=== PATIENT | female | born 1990 | race Caucasian/White ===

== ENCOUNTER 2020-06-11 12:04 | Outpatient (CLI) | payer OTHER, SELFPAY ==
[2020-06-11 12:49] LABS: Hematocrit 35.6 % (37.0-47.0); Hemoglobin 11.2 g/dL (12.0-15.0); Mean Corpuscular HGB Conc 31.5 g/dl (32-36); Mean Corpuscular Hemoglobin 27.7 pg (26-34); Mean Corpuscular Volume 88.1 fl (80-100); Mean Platelet Volume 10.3 fl (7.4-10.4); Platelet Count Result 195 k/mm3 (150-375); Red Blood Count 4.04 M/mm3 (4.2-5.4); White Blood Count 8.1 K/mm3 (4.5-10.0)
[2020-06-12 07:09] LABS: Rapid Plasma Reagin Non-Reactive (NonReactive)
== END 2020-06-11 12:05 | disposition home or self-care (01) ==
LOC: ANHLAB 12:06
PROVIDERS: Visit Provider Student in an Organized Health Care Education/Training Program
DX: Z98.891 History of uterine scar from previous surgery (principal)
CPT/HCPCS: 36415; 85027; 86592; 86900; 86901

== ENCOUNTER 2020-06-12 11:33 | Inpatient (IN) | payer OTHER, SELFPAY ==
[2020-06-12] VITALS (40 sets, daily range): BP systolic 108–155; BP diastolic 63–114; PULSE 61–102; RESP 15–20; TEMP 36.3–36.5; O2SAT 97–100; BMI 34.5
[2020-06-12] MEDS: LACTATED RINGERS 1,000 ML 125 ML IV CONT ×2 (12:34→13:19)
--- NOTE | 2020-06-12 12:39 | PM.IMHP ---
H&P: HPI History of Present Illness Date/Time: 06/12/20 12:39 Pt is a . LMP unknown. SOLANGE 06/19/20. She is s/p embryo transfer procedure on 10/02/19 with S[facility]. She is currently 39 weeks gestation. Patient presents to L&D for a scheduled repeat section. She declines TOLAC. has been uncomplicated. Patient doing well. Denies any vaginal bleeding, leakage of fluid, or contractions. Reports good movement. Chief Complaint: Repeat section Review of Systems Review of Systems: All systems reviewed & are unremarkable except as noted in HPI and below Constitutional: Constitutional: Reports as per HPI, Reports no additional constitutional complaints, Denies chills, Denies fever(s), Denies headache(s) and Denies night sweats Eyes: Eyes: Reports as per HPI and Reports no additional eye complaints ENT: Reports system reviewed and no additional complaints, except as documented, Reports as per HPI, Reports Normal hearing present and Denies headache(s) Cardiovascular: Cardiovascular: Reports as per HPI, Reports no additional cardiovascular complaints, Denies chest pain and Denies dyspnea Respiratory: Respiratory: Reports as per HPI, Reports no additional respiratory complaints, Denies cough and Denies dyspnea Gastrointestinal: Gastrointestinal: Reports as per HPI, Reports no additional gastrointestinal complaints, Denies abdominal pain, Denies change in bowel habits, Denies change in stool character, Denies nausea and Denies vomiting Genitourinary: Genitourinary: Reports no additional female genitourinary complaints, Reports as per HPI, Denies abnormal vaginal bleeding, Denies genital lesions, Denies hot flashes, Denies dyspareunia, Denies pelvic pain, Denies sexual dysfunction, Denies urinary incontinence, Denies vaginal discharge, Denies vaginal dryness and Denies vaginal odor Musculoskeletal: Musculoskeletal: Reports no additional musculoskeletal complaints and Reports as per HPI Integumentary/Breasts: Skin/Breast: Reports system reviewed and no additional complaints, except as docu, Reports as per HPI, Denies breast pain and Denies nipple discharge Neurologic: Reports system reviewed and no additional complaints, except as documented, Reports as per HPI, Reports Normal hearing present and Denies headache(s) Psychiatric: Psychiatric: Reports no additional psychiatric complaints, Reports as per HPI, Denies anxiety and Denies depression Endocrine: Endocrine: Reports no additional endocrine complaints and Reports as per HPI Hematologic/Lymphatic: Hematologic/Lymphatic: Reports no additional hematologic/lymphatic complaints and Reports as per HPI Allergic/Immunologic: Allergic/Immunologic: Reports no additional allergic/immunologic complaints and Reports as per HPI PMFSH Past Medical History Medical History (Updated 06/12/20 @ 12:48 by oLvely Torre MD) History of gestational hypertension Hypothyroidism Surgical History Surgical History Previous section Family History Family History Other No pertinent family history Social History Social History Smoking status: Never smoker Second hand tobacco smoke exposure: No Alcohol intake: never Substance use: never Gender identity (if verbalized by the patient): Female Spiritual care concerns: No Meds Home Medications and Allergies Home Medications Medication Instructions Recorded Confirmed Type ascorbic acid (vitamin C) 100 mg PO DAILY 12/04/19 06/12/20 History cholecalciferol (vitamin D3) 50 50 mcg PO DAILY 12/04/19 06/12/20 History mcg (2,000 unit) capsule vitamins with calcium 1 tablet PO DAILY #90 tablet 12/04/19 06/12/20 Rx no.72-iron 29 mg-folic acid 1 mg tablet levothyroxine 50 mcg capsule 50 mcg PO DAILY #90 cap 01/01/20 06/12/20 Rx calcium ca
--- NOTE | 2020-06-12 12:42 | LDADM ---
This patient, Chloe Haskins, was admitted to Labor/Delivery/Recovery 120 on 06/12/20 at 11:33. Plans for labor, pain management and were discussed with patient. Patient/family oriented to hospital policies and general routines including ID bracelet, bed and alarms, visiting hours, pain management, procedures, bathroom and other care routines, personal items, smoking policy, room service/diet and guest tray routines, security routines, call light, and visiting hours. Patient/Family are encouraged to report perceived risks to care and to ask questions if they do not understand what they are told or what they should do. See OBIX for further documentation.
--- NOTE | 2020-06-12 12:50 | WPDANESEPPF ---
Anes - Initial Pre Proc Eval Procedure: Operation Date: 06/12/20 13:30 Proposed Procedures p Repeat Section - Lovely Torre MD Date/Time: 06/12/20 12:50 Surgeon: Lovely Torre MD Pre Op Diagnosis: C/S Patient Data Age: 29 Gender: F Height: 5 ft 3 in Weight: 88.5 kg Last Vital Signs Pulse 93 06/12/20 12:08 BP 119/86 06/12/20 12:08 Pulse Ox 99 06/12/20 12:28 Allergies Allergy/AdvReac Type Severity Reaction Status Date / Time No Known Allergies Allergy Verified 06/12/20 12:03 Home Medications Medication Instructions Recorded Confirmed Type ascorbic acid (vitamin C) 100 mg PO DAILY 12/04/19 06/12/20 History cholecalciferol (vitamin D3) 50 50 mcg PO DAILY 12/04/19 06/12/20 History mcg (2,000 unit) capsule vitamins with calcium 1 tablet PO DAILY #90 tablet 12/04/19 06/12/20 Rx no.72-iron 29 mg-folic acid 1 mg tablet levothyroxine 50 mcg capsule 50 mcg PO DAILY #90 cap 01/01/20 06/12/20 Rx calcium carbonate 200 mg calcium 200 mg PO QID 04/29/20 06/12/20 History (500 mg) chewable tablet Patient hx anesthesia problems: none Family hx anesthesia problems: none PMFSH Past Medical History Medical History (Updated 06/12/20 @ 12:48 by Lovely Torre MD) History of gestational hypertension Hypothyroidism Surgical History Surgical History Previous section Family History Family History Other No pertinent family history Social History Social History Smoking status: Never smoker Second hand tobacco smoke exposure: No Alcohol intake: never Substance use: never Gender identity (if verbalized by the patient): Female Spiritual care concerns: No Anes - Eval Final PreProcedure Day of Procedure 06/12/20 12:50 Patient weight: obese Heart: regular rate and rhythm Lungs: clear to auscultation Airway: Mallampati scale class II Neurological: alert and oriented Last oral intake: >/= 8 hours ASA classification: II Emergent: no Anesthetic plan: proceed Anesthesia type and monitoring: regional spinal and standard monitoring Informed Consent: The patient's anesthetic plan and its attendant risks and benefits were discussed with the patient/family/POA. Questions were solicited and answers provided to the satisfaction of the patient/family/POA.
--- NOTE | 2020-06-12 12:59 | WPDHPUPDATE1 ---
History and Physical Update Update Date/Time: 06/12/20 12:59 History and Physical has been reviewed, including an updated exam of the patient. There are NO changes in the patient's condition. Risks, benefits, and alternatives have been discussed and questions answered. Patient agrees to proceed with procedure.
[2020-06-12] MEDS: ceFAZolin 2 GM/D5W 50 ML 2 GM/50 ML BAG IVPB (13:23)
--- NOTE | 2020-06-12 15:07 | PM.PROC ---
Procedure Note - Detailed Date of procedure: 06/12/20 Pre-op diagnosis: C/S Intrauterine at 39 weeks gestation Previous section x 1 Declines TOLAC Post-op diagnosis: same Procedure performed: Repeat low transverse section via Pfannenstiel Description of procedure: The patient was taken to the operating room, where she self-transferred to the operating room table. Spinal anesthesia was administered and found to be adequate. The patient was placed in dorsal supine position with a leftward tilt. She was prepped and draped in the usual sterile fashion. Spinal anesthesia was tested and found to be adequate. A Pfannenstiel skin incision was made with a scalpel and carried through to underlying layer of fascia with the Bovie. The fascia was incised in the midline and the incision was extended laterally with the use of forceps and England scissors. The inferior aspect of the fascial incision was grasped with Rogelio clamps, elevated, and the underlying rectus muscle were dissected off with England scissors. Attention was then turned to the superior aspect of the fascial incision, which in a similar manner, was grasped with Rogelio clamps, elevated, and the underlying rectus muscles were also dissected off with England scissors. The rectus muscles were grasped with Allis clamps and . The peritoneal cavity was entered sharply with a scalpel. This incision was extended superiorly and inferiorly with good visualization of the bladder and care was taken to avoid blood vessels. A bladder blade was inserted. The vesicouterine peritoneum was identified and incised sharply with Metzenbaum scissors. This incision was extended laterally with Metzenbaum scissors and a bladder flap was created digitally. The bladder blade was replaced. A low-transverse uterine incision was made with a scalpel. This incision was extended laterally with bandage scissors. Amniotomy was performed. Meconium stained amniotic fluid was noted. The infant's head was grasped and gently guided to the level of the uterine incision. Additional space was needed to facilitate delivery and the rectus muscles along the left side were transected approx. 1-1.5 cm with England scissors. The 's head was delivered atraumatically without difficulty followed by the neck, shoulders, and rest of body with gentle fundal pressure. The 's nose and mouth were suctioned bulb suction. The infant was crying spontaneously. The cord was clamped and cut and the infant was handed off to waiting nursing staff. A segment of cord was collected for cord gases. Cord blood was also collected. The placenta was then delivered manually with gentle uterine massage. Uterus was exteriorized and cleared of all clots and debris. The uterine incision was reapproximated with 0 Vicryl in a running, locked fashion. A second imbricating layer using 0 Monocryl performed. Excellent hemostasis was noted. On inspection, the uterus, ovaries, and fallopian tubes appeared to be normal bilaterally. The uterus was replaced into the abdominal cavity. The gutters were cleared of all clots and debris. The uterine incision was inspected again. Pinpoint areas of oozing beneath incision were noted and made hemostatic with bovie. An area of bleeding on the surface of the lower uterine segment was also bleeding. This area was made hemostatic with two figure of eight sutures using 0 Vicryl. Excellent hemostasis was noted. Hemaderm was applied across the uterine incision. Interceed was also applied across the uterine incision and anterior surface of the uterus. The peritoneum was reapproximated with 2-0 Monocryl. The fascia was then closed with 0 Vicryl in a running fashion. The subcutaneous layer was irrigated with water. Pinpoint areas of bleeding were made hemostatic with Bovie. The subcutaneous layer was reapproximated with 2-0 plain and the skin was then closed with 4-0 Monocryl in a subcuticular fashion. The skin was cleansed and dried. Dermaflex skin adhe
--- NOTE | 2020-06-12 15:18 | P.PCNOB_ITS ---
OB - Delivery Note Procedure Delivery date: 06/12/20 Procedure: Procedures Operation Date: 06/12/20 13:30 <No data on this case meets the specified criteria> events: Previous Intrapartal events: None Route of delivery: Quantitative Blood Loss (ml): 360 Anesthesia type: Spinal Disposition: floor Complications: No immediate complications [place] Baby Date of : 06/12/20 Time of : 13:59 Weeks of gestation at delivery: 39 Infant gender: Female Weight (pounds): 8 Weight (ounces): 13 presentation: vertex Placenta delivery description: Manual Removal cord vessel description: 3 Vessels score one minute: 8 score five minutes: 9
[2020-06-12] MEDS: diphenhydrAMINE HCl INJ 50 MG/ML VIAL 25 MG IV PUSH (15:56)
[2020-06-12] MEDS: OXYTOCIN 30 UNITS/NS 500 ML 30 UNITS/500 ML BAG 125 UNITS IV CONT (16:00)
[2020-06-12] MEDS: ONDANSETRON INJ 4 MG/2 ML VIAL IV PUSH (22:47)
[2020-06-13] MEDS: HYDROcodone/acetaminophen (*CRX) 5-325 MG TABLET 1 TAB PO ×5 (03:59→23:54)
[2020-06-13] MEDS: IBUPROFEN 600 MG TABLET PO ×4 (03:59→23:55)
[2020-06-13 04:00] VITALS: BP 121/84; PULSE 75; RESP 16; TEMP 36.6; O2SAT 100
[2020-06-13 04:44] LABS: Basophils Percent Auto 0.2 % (0.2-1.2); Eosinophils Absolute Auto 0.1 K/mm3 (0-0.3); Eosinophils Percent Auto 0.7 % (0-4.4); Hematocrit 31.5 % (37.0-47.0); Hemoglobin 10.1 g/dL (12.0-15.0); Immature Granulocyte Absolute 0.04 K/mm3 (0.00-0.031); Immature Granulocyte Percent A 0.3 % (0-0.5); Lymphocytes Absolute Auto 1.66 K/mm3 (0.9-3.2); Lymphocytes Percent Auto 13.7 % (18.3-44.2); Mean Corpuscular HGB Conc 32.1 g/dl (32-36); Mean Corpuscular Hemoglobin 28.1 pg (26-34); Mean Corpuscular Volume 87.7 fl (80-100); Mean Platelet Volume 10.8 fl (7.4-10.4); Monocytes Absolute Auto 0.6 K/mm3 (0.1-0.6); Monocytes Percent Auto 5.3 % (2.6-8.5); Neutrophils Absolute Auto 9.7 K/mm3 (1.3-6.7); Neutrophils Percent Auto 79.8 % (45.5-73.1); Platelet Count Result 183 k/mm3 (150-375); Red Blood Count 3.59 M/mm3 (4.2-5.4); Red Cell Distribution Width 12.8 % (11.5-14.5); White Blood Count 12.1 K/mm3 (4.5-10.0)
--- NOTE | 2020-06-13 07:42 | WPDANLDPN2 ---
Anes-Prog Note L&D Date/Time: 06/13/20 07:42 Comfortable throughout: section Neuraxial method: spinal Epidural/Spinal procedure site: clean & non-tender Neuro status: Neuro function grossly intact. Cardiovascular status: normal Respiratory status: normal Airway patency: baseline Mental status: baseline Post-Op hydration status: normal Vital Signs: Last Vital Signs Temp 36.6 C 06/13/20 04:00 Pulse 75 06/13/20 04:00 Resp 16 06/13/20 04:00 BP 121/84 06/13/20 04:00 Pulse Ox 100 06/13/20 04:00 Pain score (VAS): 0 I/O: Intake & Output 06/12/20 06/12/20 06/13/20 15:59 23:59 07:59 Intake Total 1050 Output Total 548 708 7041 Balance [phone] Post-procedural complaints: none Patient feedback: Patient satisfied with anesthetic care.
--- NOTE | 2020-06-13 07:42 | WPDANLDNPN2 ---
Anes-Prog Note L&D-Neuraxial Date/Time: 06/13/20 07:42 Neuraxial medications: intrathecal PF morphine Opiod-related complaints: none Patient feedback: Patient satisfied with post-operative pain management.
--- NOTE | 2020-06-13 08:19 | PM.OBPNVD ---
OB - PN: Subj Subjective Date/time seen: 06/13/20 08:19 Patient doing well this morning. Pain well controlled with medication. Denies any headache, chest pain, shortness of breath, nausea, or vomiting. Tolerating regular PO diet. Ambulating without difficulty. Jacinto catheter removed this morning. Patient has voided. No flatus yet. OB - PN: Obj Data Labs CBC & Chem 7: 06/13/20 03:55 Labs: Laboratory Results - last 24 hr 06/13/20 03:55 WBC 12.1 H RBC 3.59 L Hgb 10.1 L Hct 31.5 L MCV 87.7 MCH 28.1 MCHC 32.1 RDW 12.8 Plt Count 183 MPV 10.8 H Immature Gran % (Auto) 0.3 Neut % (Auto) 79.8 H Lymph % (Auto) 13.7 L [place] % (Auto) 5.3 Eos % (Auto) 0.7 Baso % (Auto) 0.2 Lymph # (Auto) 1.66 [place] # (Auto) 0.6 Eos # (Auto) 0.1 Baso # (Auto) 0.0 Abs Immat Gran (auto) 0.04 H Absolute Neuts (auto) 9.7 H Absolute Nucleated RBC 0.0 Nucleated RBC % 0.0 OB - PN A/P Assessment and Plan (1) Delivery by section: Status: Acute Assessment and Plan: POD#1 doing well continue routine postoperative care encourage ambulation and use of IS pain management PRN Time Spent With Patient Time: Total time spent is greater than 50% in coordination of care (as documented) at patient's floor/unit and/or counseling patient: Exam Const: General: cooperative, healthy appearing, comfortable and no acute distress GI: Inspection: non-distended GI Palp: Yes Soft to palpation and No Tenderness to palpation present (GI) Other: fundus firm below umbilicus, inc covered with bandage, bandage c/d/i Extrem: Right lower extremity: edema (trace) Left lower extremity: edema (trace) Other: no calf tenderness
[2020-06-13 08:35] VITALS: BP 108/72; PULSE 82; RESP 18; TEMP 37.2; O2SAT 99
[2020-06-13] MEDS: SIMETHICONE 80 MG TAB.CHEW PO ×3 (09:20→23:54)
[2020-06-13] MEDS: DOCUSATE SODIUM 100 MG CAPSULE PO ×2 (09:20→16:57)
[2020-06-13] MEDS: MULTIVIT/MIN/PREN/FOL AC/IRON TABLET 1 TAB PO (09:21)
[2020-06-13 12:20] VITALS: PULSE 82; RESP 18; O2SAT 99
--- NOTE | 2020-06-13 12:30 | PC.NURSE ---
Consult with pt., mother reports is sleepy and does not wake for feedings. Mother is pumping and using the latch assist and nipple shield. Mother reports does not nurse with shield and latch assist will draw nipple out and will quickly flatten before infant can latch. Mother pumped and bottle fed with first child due to latch issues. Requested mother call out next feeding for assist.
[2020-06-13 13:10] VITALS: BP 121/88; PULSE 80; RESP 18; TEMP 36.7; O2SAT 98
--- NOTE | 2020-06-13 13:20 | PC.NURSE ---
Attempt to assist with feeding, mother states was acting fussy so she just bottle feed.
--- NOTE | 2020-06-13 15:30 | PC.NURSE ---
Mother called out for assist with feeding. Demonstrated stimulation techniques to wake for feeding. Assisted with infant to breast. Reviewed positioning/alignment in football, holding breast in C hold and guided asymmetrical latch on. Several attempts before infant was able to latch correctly. is sleepy and does not open wide and tends to suck on her own tongue not allowing deep latch. Once on nursed with eagerly, with steady draws and frequent occasional swallowing for bursts and would have long pausing. Constant stimulation needed to keep infant nursing. Reviewed signs of a correct latch, effective nursing and suck swallow ratio. Infant was able to maintain latch. Mother reported tenderness at times, as infant had slipped to shallow latch. Demonstrated how to adjust latch more deeply while feeding. Mother quickly reports she can feel is latched more deeply and has minimal tenderness. Suggested to stimulate infant while feeding to keep infant awake and nursing effectively for increased stimulation and increased intake. Instructed mother to call out for RN assistance if she is unable to latch infant for feeding or she has discomfort with nursing. Mother reports she is pleased this is 's first feeding at the breast. Suggested mother continue to supplement smaller amounts after if infant continues to act fussy or continue to root. Reviewed mother should continue to pump until is more effective and eagerly feeding.
[2020-06-13 17:00] VITALS: BP 112/76; PULSE 79; RESP 18; TEMP 36.7; O2SAT 98
[2020-06-13 20:00] VITALS: BP 115/79; PULSE 72; RESP 18; TEMP 36.9; O2SAT 100
[2020-06-14] MEDS: SIMETHICONE 80 MG TAB.CHEW PO ×2 (05:07→09:54)
[2020-06-14] MEDS: HYDROcodone/acetaminophen (*CRX) 5-325 MG TABLET 1 TAB PO ×2 (05:07→09:53)
[2020-06-14 07:15] VITALS: BP 115/82; PULSE 68; RESP 18; TEMP 36.9
[2020-06-14] MEDS: LEVOTHYROXINE SODIUM 50 MCG TABLET PO (07:16)
[2020-06-14] MEDS: MULTIVIT/MIN/PREN/FOL AC/IRON TABLET 1 TAB PO (07:16)
[2020-06-14] MEDS: IBUPROFEN 600 MG TABLET PO (07:16)
[2020-06-14] MEDS: DOCUSATE SODIUM 100 MG CAPSULE PO (07:16)
--- NOTE | 2020-06-14 10:59 | PM.OBPNVD ---
OB - PN: Subj Subjective Date/time seen: 06/14/20 10:59 Patient comments: no complaints, pain well controlled, tolerating diet, flatus present and other (Ambulating and voiding without problems. Lochia similar to menses) baby status: doing well OB - PN: Obj Data Labs CBC & Chem 7: 06/13/20 03:55 OB - PN A/P Plan day: 2 (s/p C section, doing well) Plan: routine care and discharge home (Follow up in 2 weeks) Time Spent With Patient Time: Total time spent is greater than 50% in coordination of care (as documented) at patient's floor/unit and/or counseling patient: Time with patient: less than 15 minutes Exam Const: General: no acute distress Resp: Auscultation: clear to auscultation bilaterally Cardio: Rate: regular rate Rhythm: regular rhythm GI: Inspection: non-distended, incision (Intact without erythema, drainage, or induration) and other (Fundus firm and nontender below umbilicus) GI Palp: Yes abdominal tenderness (appropriate) and Yes Soft to palpation Extrem: General: no edema
--- NOTE | 2020-06-14 11:00 | PM.OBDSVD ---
DS: Admitting Diagnosis Admitting Diagnosis Admitting Diagnosis: Prior c section OB - DS: Summary OB Procedures : None OB Procedures Intrapartum: OB Procedures: : None Peripartum Data Delivery Method: Section Procedures: Procedures Operation Date: 06/12/20 13:30 Actual Procedures Side Surgeon p Repeat Section Lovely Torre MD complications: none Status at Discharge Functional status at discharge: independent ambulation Overall status at discharge: patient is progressing back to baseline Time Spent with Patient Time attestation: Total time spent providing and/or coordinating discharge services: Time spent: Less than 30 minutes Discharge Plan Discharge Attending physician on discharge: Lovely Torre Discharging Clinician: Tori Jang Patient Disposition: Home, Self-Care Activity: may shower and pelvic rest Diet: as tolerated Wound Care Instructions: incision open to air Discharge Instructions: Education: Mom and Baby Guide Given to: Mother Follow-Up: Call your delivering provider's office for an appointment to be seen in: 6 Weeks Mom and baby should come to the [facility] for the follow-up appointment. Appointment Date/Time: June 16, 2020 at 10:00 am What to expect at your follow-up visit: Blood Pressure Check Physical Assessment Call [phone] if you are unable to keep your appointment time. BREAST CARE: * Wear a snug supportive bra. * For engorgement discomfort: Breast Feeding: * Apply warm moist washcloths * Express milk as needed to relieve engorgement * Wear loose clothing Bottle Feeding: * May apply ice packs * For sore nipples: * Identify correct latch-on * Apply warm moist washcloths before and after nursing * Air dry nipples after nursing * May apply Lansinoh cream to nipples ABDOMINAL INCISION: (if applicable) * Allow incision to air dry * Do NOT use lotions for powders on your incision * When showering, allow soap and water to run over the incision, but do not wash incision EPISIOTOMY/PERINEAL CARE: * Until bleeding stops, use your bren bottle after urinating * Change your pad frequently throughout the day * You may take sitz baths several times a day (fill your bathtub with warm water and soak for 20 minutes.) Do NOT bathe in the water * No tub baths until seen by your physician - You may shower ACTIVITY: * Rest as much as possible. * Do not exercise or lift anything heavier than your baby (such as laundry or other children.) * Avoid stairs or driving as much as possible. * Do not put anything into the vagina. No douching, tampons, or sexual activity until seen by physician. NOTIFY PHYSICIAN IF YOU HAVE ANY QUESTIONS OR IF ANY OF THE FOLLOWING SYMPTOMS OCCUR: * If your episiotomy or incision becomes red, swollen, or more painful than what you have experienced in the hospital. * If your vaginal bleeding becomes foul smelling. * If your vaginal bleeding becomes more heavy than a period or if your bleeding changes from pink to bright red. However, you may pass an occasional walnut-sized clot once or twice for the first week . * If you experience a sharp, shooting pain in you calves. * If you discover a hard, reddened area on your breast or if you experience flu-like symptoms. DIET: * Eat regular, well-balanced meals. * Drink plenty of fluids daily. If , drink to thirst. Stand Alone Forms: General Discharge Information Follow-up/Referrals: Lovely Torre MD [Physician] - 2 Weeks Discharge Medications: New hydrocodone-acetaminophen 5-325 mg Tablet 1 tablet PO Q4H PRN (Reason: Moderate Pain (4-6)) Qty: 30 RF: 0 ibuprofen 600 mg Tablet 600 mg PO Q6H PRN (Reason: Cramping) Qty: 60 RF: 0 Continued cholecalciferol (vitamin D3) 50 mc
[2020-06-14] MEDS: TETANUS,DIPHTHERIA,AC PERTUSSIS ADULT (0.5 ML) BOOSTRIX IM (11:42)
[2020-06-16 10:32] VITALS: BP 119/87; PULSE 67; RESP 18; TEMP 36.7
== END 2020-06-14 12:05 | disposition home or self-care (01) | DRG 788 ==
LOC: ANHOB2 06-14 11:08 → ANHLDR 06-16 17:14 → ANHOB2 06-16 17:14
PROVIDERS: Admitting Provider Student in an Organized Health Care Education/Training Program; Visit Provider Obstetrics & Gynecology
PROC: 10D00Z1 Extraction of Products of Conception, Low, Open Approach (ICD-10-PCS; CPT 59514; principal; 2020-06-12 13:30)
DX: O34.211 Maternal care for low transverse scar from previous cesarean delivery (principal); Z37.0 Single live birth; Z3A.39 39 weeks gestation of pregnancy; O99.284 Endocrine, nutritional and metabolic diseases complicating childbirth; E03.9 Hypothyroidism, unspecified; O99.214 Obesity complicating childbirth; E66.9 Obesity, unspecified; O77.0 Labor and delivery complicated by meconium in amniotic fluid
CPT/HCPCS: 36415; 85025; 85027; 86592; 86900; 86901; 90715; A9270; J0131; J0690; J1200; J2274; J2370; J2405; J2590; J7120

== ENCOUNTER → 2021-10-21 11:51 | Outpatient (CLI) | payer OTHER, SELFPAY ==
--- NOTE | ~2021-10-21 | US_ITS ---
EXAMINATION: US OB <=14 wk fetus w TV INDICATION: O26.851 - Spotting complicating , first trimester . LMP 08/03/2021. GA by LMP 11 weeks 2 days. SOLANGE by LMP 05/10/2022. TECHNIQUE: Sonography of the pelvis was performed by transabdominal and transvaginal techniques. COMPARISON: None. RESULT: Uterus: - Orientation: Anteverted - Size: 12.1 x 6.1 x 6.5 cm - Myometrium: Homogeneous echogenicity . Gestation: - Intrauterine gestational sac: Single present - Mean Sac Diameter: cm, corresponding gestational age week days - Yolk sac: 0.5 cm - Embryo: Single present - [place] rump length: 2.9 cm, corresponding gestational age 9 weeks, 5 days -Gestational heart rate: present 180 bpm -Subgestational hematoma: Absent Right ovary: - Size : 2.3 x 1.6 x 2.2 cm - Normal sonographic appearance with physiologic follicles. Left ovary: - Size: 3.5 x 2.3 x 2.8 cm - Normal sonographic appearance with physiologic follicles. Pelvis free fluid: None. IMPRESSION: Single, live intrauterine gestation. heart rate 180 bpm. Estimated Gestational Age: 9 weeks, 5 days by crown rump length. SOLANGE by ultrasound 05/22/2019. Reviewed, dictated and finalized at location [facility]. IMPRESSION: Single, live intrauterine gestation. heart rate 180 bpm. Estimated Gestational Age: 9 weeks, 5 days by crown rump length. SOLANGE by ultras ound 05/22/2019.
== END ==
PROVIDERS: PCP Student in an Organized Health Care Education/Training Program; Visit Provider Student in an Organized Health Care Education/Training Program
DX: O26.851 Spotting complicating pregnancy, first trimester (principal); Z3A.09 9 weeks gestation of pregnancy
CPT/HCPCS: 76801; 76817

== ENCOUNTER 2021-11-08 08:08 | Emergency (ER) | payer OTHER, SELFPAY ==
--- NOTE | ~2021-11-08 | US_ITS ---
EXAMINATION: US OB <=14 wk fetus w TV DATE: 11/08/2021 11:45 INDICATION: Vaginal bleeding. TECHNIQUE: Real-time transabdominal and transvaginal pelvic ultrasound was performed. COMPARISON: Ultrasound 10/21/2021 FINDINGS: TRANSABDOMINAL ULTRASOUND: The uterus measures 11.3 x 6.8 x 7.4 cm. TRANSVAGINAL ULTRASOUND: There is an intrauterine gestational sac. The crown rump length measur es 6.4 cm, which correlates with an estimated gestational age of 12 weeks and 6 day(s) (+/-) 1 week(s ) and 1 day(s). heart motion is identified measuring 144 beats per minute (bpm) by M-mode Doppl er. The cervical length is 3.4 cm. The right ovary measures 2.5 x 1.9 x 2.3 cm. The left ovary measur es 2.5 x 1.8 x 2.5 cm. There is no free fluid in the pelvis. IMPRESSION: 1. Single living intrauterine gestation with estimated date of delivery of 05/21/2022 based on the ult rasound from 10/21/2021. Reviewed, dictated and finalized at location A. IMPRESSION: 1. Single living intrauterine gestation with estimated date of delivery of 05/21 based on the ultrasound from 10/21/2021.
[2021-11-08 08:11] VITALS: BP 151/99; PULSE 99; RESP 14; TEMP 36.7; O2SAT 100
[2021-11-08 09:49] LABS: Basophils Percent Auto 0.3 % (0.2-1.2); Eosinophils Absolute Auto 0.1 K/mm3 (0-0.3); Eosinophils Percent Auto 1.2 % (0-4.4); Hematocrit 37.1 % (37.0-47.0); Hemoglobin 12.2 g/dL (12.0-15.0); Immature Granulocyte Absolute 0.03 K/mm3 (0.00-0.031); Immature Granulocyte Percent A 0.3 % (0-0.5); Lymphocytes Absolute Auto 1.59 K/mm3 (0.9-3.2); Mean Corpuscular HGB Conc 32.9 g/dl (32-36); Mean Corpuscular Volume 91.2 fl (80-100); Mean Platelet Volume 9.5 fl (7.4-10.4); Monocytes Absolute Auto 0.4 K/mm3 (0.1-0.6); Monocytes Percent Auto 3.7 % (2.6-8.5); Neutrophils Absolute Auto 7.3 K/mm3 (1.3-6.7); Neutrophils Percent Auto 77.5 % (45.5-73.1); Platelet Count Result 263 k/mm3 (150-375); Red Blood Count 4.07 M/mm3 (4.2-5.4); Red Cell Distribution Width 12.7 % (11.5-14.5); White Blood Count 9.4 K/mm3 (4.5-10.0)
--- NOTE | 2021-11-08 09:52 | ED.PREGNANCY ---
HPI - General Chief complaint: Vaginal Bleeding Stated complaint: 12 weeks , vaginal bleeding Time Seen by Provider: 11/08/21 09:01 Source: patient Mode of arrival: ambulatory Limitations: no limitations History of Present Illness HPI Narrative: Patient is a 31 y/o female who presents to the ED with c/o vaginal spotting. Patient is and currently approx 12 weeks , confirmed IUP via US @ [address] Torre. Patient reports she noticed bright red vaginal spotting when wiping this morning. Bleeding very minimal, but patient became concerned. She called [facility] office and was advised she could come to the ER if she was concerned. Patient denies any abdominal pain. Occasional nausea, but denies vomiting. Denies fever, dysuria, hematuria. Related Data Home Medications Medication Instructions Recorded Confirmed ascorbic acid (vitamin C) 100 mg PO DAILY 12/04/19 06/12/20 cholecalciferol (vitamin D3) 50 50 mcg PO DAILY 12/04/19 06/12/20 mcg (2,000 unit) capsule levothyroxine 50 mcg tablet 25 mcg PO .COMPLEX 08/11/21 Allergies Allergy/AdvReac Type Severity Reaction Status Date / Time No Known Allergies Allergy Verified 10/27/21 13:39 Review of Systems Review of Systems: CONSTITUTIONAL: Denies fever, chills, or sweats. GASTROINTESTINAL: Reports nausea. Denies abdominal pain, vomiting, or diarrhea. GENITOURINARY: Reports vaginal spotting. Denies dysuria or hematuria. All systems reviewed & are unremarkable except as noted in HPI and below PMFSH Past Medical History Medical History History of gestational hypertension History of in vitro fertilization x2 Hypothyroidism Surgical History Surgical History Delivery by section x2 History of bunionectomy Family History Family History Other No pertinent family history Social History Social History Smoking status: Never smoker Second hand tobacco smoke exposure: No Alcohol intake: never Substance use: never Gender identity (if verbalized by the patient): Female Spiritual care concerns: No Exam Narrative: GENERAL: Well appearing, well-nourished, non-toxic, in no acute distress. HEAD: Normocephalic, atraumatic. NECK: Supple. No adenopathy, no masses. RESPIRATORY: Airway patent, respirations nonlabored. Clear to auscultation bilaterally, no rales, rhonchi, wheezing. CARDIOVASCULAR: Regular rate and rhythm without murmurs, rubs, or gallops. Peripheral pulses 2+ and equal bilaterally. ABDOMINAL: Soft, minimal lower abdominal/suprapubic tenderness, nondistended, no hepatosplenomegaly. Normoactive BS. PELVIC: Normal external genitalia. Small amount of dark red vaginal bleeding in vaginal vault, able to be cleared with 1 long cotton swab. No pooling of blood or signs of hemorrhage. Cervix closed. No CMT. MUSCULOSKELETAL: Moves all extremities. Strength/ROM intact without gross deformities. SKIN: Warm, dry, normal color. No rashes. NEURO: A&O X3. Speech clear. Cranial nerves II-XII grossly intact. Steady gait. No ataxic movements. PSYCHIATRIC: Anxious. Appropriate affect. Normal interaction. Course Consultations Consultation #1: Discussed case findings with Dr. Torre [employer], advised patient can be discharged home and follow-up in office. Pelvic rest until cleared by OB. Date: 11/08/21 Time: 12:13 Vital Signs Vital signs: Vital Signs Temperature 98.0 F 11/08/21 08:11 Pulse Rate 99 11/08/21 08:11 Respiratory Rate 14 11/08/21 08:11 Blood Pressure 151/99 H 11/08/21 08:11 Pulse Oximetry 100 11/08/21 08:11 Oxygen Delivery Room Air 11/08/21 08:11 Temperature 98.0 F 11/08/21 08:11 Pulse Rate 76 11/08/21 12:23 Respiratory Rate 16 11/08/21 12:2
[2021-11-08 09:59] LABS: Alanine Aminotransferase 14 U/L (6-35); Alkaline Phosphatase 77 U/L (38-126); Anion Gap 9 mmol/L (8-16); Aspartate Amino Transferase 23 U/L (14-36); Bilirubin,Total 0.4 mg/dL (0.2-1.3); Blood Urea Nitrogen 16 mg/dL (7-17); Calcium 8.6 mg/dL (8.4-10.2); Carbon Dioxide 24 mmol/L (22-30); Chloride 104 mmol/L (98-107); Estimated Glomerular Filt Rate > 60; Glucose 94 mg/dL (65-110); Potassium 4.3 mmol/L (3.4-5.0); Sodium 137 mmol/L (137-145)
[2021-11-08 11:01] LABS: Appearance Urine Clear (Clear); Bilirubin Urine Negative (Negative); Blood Urine 1+ (Negative); Glucose Urine UA Negative (Negative); Ketones Urine Negative (Negative); Leukocyte Esterase Ur Negative LEU/UL (Negative); Nitrate Urine Negative (Negative); Protein Urine Negative (Negative); Urobilinogen Urine 0.2 mg/dL (<2.0)
[2021-11-08 11:07] LABS: Add Urine Microscopic? YES; Bacteria Urine Trace /hpf; Color Urine Light Yellow (Yellow); Mucus Urine Rare /lpf; Squamous Epithelial Cell Urine Occasional /hpf (Few); WBC Urine 0-3 /hpf
[2021-11-08 12:03] VITALS: BP 122/72; PULSE 88; RESP 16; O2SAT 100
[2021-11-08 12:23] VITALS: BP 115/76; PULSE 76; RESP 16; O2SAT 97
== END 2021-11-08 12:24 | disposition home or self-care (01) ==
PROVIDERS: Physician Assistant; Emergency Provider Emergency Medicine; PCP Student in an Organized Health Care Education/Training Program
DX: O20.0 Threatened abortion (principal); Z3A.12 12 weeks gestation of pregnancy
CPT/HCPCS: 36415; 76801; 76817; 80053; 81001; 84702; 85025; 99284

== ENCOUNTER 2022-02-22 06:56 | Outpatient (CLI) | payer OTHER, SELFPAY ==
[2022-02-22 07:36] LABS: Glucose Fasting Gestational 90 mg/dL (>/=95)
[2022-02-22 09:10] LABS: Glucose 1 Hour Gest 139 mg/dL (>/=180)
[2022-02-22 10:30] LABS: Glucose 2 Hour Gest 158 mg/dL (>/= 155)
[2022-02-22 11:11] LABS: Glucose 3 Hour Gest 111 mg/dL (>/=140)
== END 2022-02-22 06:57 | disposition home or self-care (01) ==
LOC: ANHLAB 06:58
PROVIDERS: PCP Student in an Organized Health Care Education/Training Program; Visit Provider Student in an Organized Health Care Education/Training Program
DX: O99.810 Abnormal glucose complicating pregnancy (principal); Z3A.00 Weeks of gestation of pregnancy not specified
CPT/HCPCS: 36415; 82951; 82952